=== PATIENT | female | born 1945 | race Hispanic/Latino ===

== ENCOUNTER → 2020-01-22 | Outpatient (CLI) | payer MEDICARE ==
[~2020-01-22] MED LIST: ASPIRIN81 MG PO; ENALAPRIL MALEA20 MG PO; HYDRALAZINE HCL10 MG PO; HYDROCHLOROTHIA25 MG PO; IOPAMIDOL 370 MG/ML 200 ML INFUS..BTL INJ ONE; METOPROLOL SUCC25 MG PO; METOPROLOL TARTRATE 25 MG TAB ONE; METOPROLOL TARTRATE INJ 1 MG/ML VIAL ONE; NITROGLYCERIN 0.4 MG SUBL ONE; SODIUM CHLORIDE 0.9% 0 ML ONE; SODIUM CHLORIDE 0.9% 100 ML ONE
[2020-01-22 08:35] LABS: BLOOD UREA NITROGEN 15 mg/dL (7-26); BUN/CREATININE RATIO 21 (6-25); CREATININE, SERUM 0.73 mg/dL (0.57-1.11); EST GLOMERULAR FILTRATION RATE > 60 ML/MIN (60-)
--- NOTE | 2020-01-22 14:39 | Diagnostic Imaging Report ---
EXAM: CALCIUM SCORE AND CORONARY CTA INDICATION: ^[id number] ^[id number] ^CP COMPARISON: None. TECHNIQUE: Multi-detector CT technology was employed (64 MDCT [employer]). Minimal slice thickness was performed following the intravenous administration of contrast material. The patient was premedicated with 25 mg by mouth and 5 mg i.v. metoprolol and 0.4 mg sublingual nitroglycerin for heart rate control and coronary dilation, respectively. IV CONTRAST: 150 mL of Omnipaque 350 ORAL CONTRAST: None COMPLICATIONS: None RADIATION DOSE: Total DLP: 1382.2 mGy*cm Estimated effective dose: (DLP x 0.015 x size factor) mSv CTDIvol has been reviewed. It is below the limits set by the Radiation Protocol Committee (RPC). For optimization of anatomic evaluation, multiplanar reconstruction, maximum intensity projections, and advanced 3-D off-line postprocessing were performed on a dedicated stand-alone workstation under the direct supervision of the interpreting physician. QUALITY: Excellent FINDINGS: CALCIUM SCORE: The observed Agatston Calcium Score of 191 is at percentile between 50 and 75% for subjects of the same age and gender who are free of clinical cardiovascular disease and treated diabetes. The Agatston score for each vessel is as follows: LM: 26.4 LAD: 154 LCx: 10.3 RCA: 0 DISTRIBUTION OF THE CALCIFIED PLAQUES: Mild and moderate scattered calcified plaques throughout the coronary arteries including the left main coronary artery. 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 The origin of the right coronary arteries at the level of the pulmonic valve (no intramural, no intra-arterial), and then runs into the normal right atrial ventricular groove. The left main coronary artery arises normally from the left coronary cusp. Left Main Coronary Artery: The left main is normal sized vessel that bifurcates into the LAD and circumflex. Minimal calcified plaque at the junction of the aortic root and posterior wall of the proximal left main coronary artery without stenosis, may be just a calcification of the root rather than a calcified plaque in the left main coronary artery. Otherwise, the left main coronary artery is widely patent without atherosclerotic disease. Left Anterior Descending Coronary Artery: The LAD is a normal size vessel that wraps around the apex. It gives rise to 2 acute diagonal branches. Focal calcified plaque in the mid LAD at the level of the origin of the diagonal branch results in 50% stenosis. Additional scattered nonobstructing mild calcified plaques throughout the proximal segment. Distal segment is normal in caliber and widely patent. Left Circumflex Coronary Artery: The LCX is a large size vessel, which is co-dominant. It gives rise to 1 large obtuse marginal branches. Mild nonobstructing calcified plaque in the mid-LCx. Otherwise, the LCx and obtuse marginal branch is widely patent. Right Coronary Artery: The anomalous RCA is a large size vessel, which is co-dominant. It gives rise to a conus branch, AV fernando branch, and 2 acute marginal branches. In its distal segment it bifurcates into the PDA and PV branch. There is no evidence of atherosclerotic changes or stenotic disease. CARDIAC MORPHOLOGY AND FUNCTION: The right and left atria and ventricles are morphologically normal. LIMITED CHEST: Limited views of the visualized chest show no abnormality within chest wall and mediastinum. No mediastinal lymphadenopathy. Mosaic attenuation of the lungs. Biatrial enlargement. Left ventricular hypertrophy. Small hiatal hernia. The visualized portions of the ascending and descending thoracic aorta are of normal size. LIMITED ABDOMEN: Limited images of the upper abdomen reveal no abnormalities of the visualized organs. BONES: No acute osseous abnormalities. IMPRESSION: 1. Total Agatston Calcium Score: 191 that corresponds to percentile between 50 and 75%, representing moderate plaque burden. 2. 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 3. Focal calcified plaque in the mid LAD resulting in 50-55 % stenosis. Scattered additional mild nonobstructing calcified plaques in the remaining LAD and LCx. CAD-EMELY: 3 Management: Correlate with functional assessment. Reference: J Cardiovasc Comput Tomogr. Dec-Jan 2016;10(4):269-81. 4. Biatrial enlargement with associated mild pulmonary edema. Signed by: Dr. Rosalind Betts M.D. on 01/22/2020 2:36 PM
== END ==
LOC: CT 07:41
PROVIDERS: ATTEND Internal Medicine Cardiovascular Disease
DX: R07.9 Chest pain, unspecified (principal)
CPT/HCPCS: 36415; 75574; 82565; 84520; J7050; Q9967